=== PATIENT | male | born 1995 | race African-American/Black ===

== ENCOUNTER 2018-09-03 16:41 | Emergency (ER) | payer OTHER ==
[2018-09-03 16:54] VITALS: BP 123/80
--- NOTE | 2018-09-03 17:32 | ED ---
Throat Pain/Nasal Congestion - HPI Summary HPI Summary: 23-year-old male presents with dental pain for the past couple days. He states it is intermittent pain for the past year but couple days ago he broke the tooth further. He states it is sensitive to temperature. No chest pain or shortness breath. No drainage from the area. No sore throat. No difficulty swallowing. Has been using Tylenol for pain relief with minimal relief. - History of Current Complaint Chief Complaint: UCDentalProblem Time Seen by Provider: 09/03/18 17:25 - Allergies/Home Medications Allergies/Adverse Reactions: Allergies Allergy/AdvReac Type Severity Reaction Status Date / Time No Known Allergies Allergy Verified 09/03/18 16:54 Home Medications: Home Medications Acetaminophen [Tylenol] 500 mg PO Q6HR 09/03/18 [History Confirmed 09/03/18] PMH/Surg Hx/FS Hx/Imm Hx Endocrine/Hematology History: Denies: Hx Anticoagulant Therapy Respiratory History: Denies: Hx Asthma Infectious Disease History: No Infectious Disease History: Denies: Traveled Outside the [place] in Last 30 Days - Family History Known Family History: Positive: Non-Contributory - Social History Alcohol Use: None Substance Use Type: Reports: Marijuana Substance Use Comment - Amount & Last Used: daily Smoking Status (MU): Heavy Every Day Tobacco Smoker Review of Systems Negative: Fever Positive: Dental Pain Negative: Chest Pain Negative: Shortness Of Breath All Other Systems Reviewed And Are Negative: Yes Physical Exam Triage Information Reviewed: Yes Vital Signs On Initial Exam: Initial Vitals Temp Pulse Resp BP Pulse Ox 98.5 F 78 14 123/80 98 09/03/18 16:43 09/03/18 16:43 09/03/18 16:43 09/03/18 16:43 09/03/18 16:43 Vital Signs Reviewed: Yes Appearance: Positive: Well-Appearing Skin: Positive: Warm, Dry Head/Face: Positive: Normal Head/Face Inspection Eyes: Positive: Normal, EOMI, JOSE GUADALUPE, Conjunctiva Clear ENT: Positive: Normal ENT inspection, Pharynx normal, TMs normal Dental: Positive: Percussion Tenderness @ - 31, Gross Decay/Caries @ - throughout Respiratory/Lung Sounds: Positive: Clear to Auscultation, Breath Sounds Present Cardiovascular: Positive: Normal, RRR Musculoskeletal: Positive: Normal Neurological: Positive: Normal Psychiatric: Positive: Normal Diagnostics - Vital Signs Vital Signs Temp Pulse Resp BP Pulse Ox 09/03/18 16:43 98.5 F 78 14 123/80 98 - Laboratory Lab Statement: Any lab studies that have been ordered have been reviewed, and results considered in the medical decision making process. EENT Course/Dx - Course Course Of Treatment: 23-year-old male presents with dental pain for the past couple days. He states it is intermittent pain for the past year but couple days ago he broke the tooth further. He states it is sensitive to temperature. No chest pain or shortness breath. No drainage from the area. No sore throat. No difficulty swallowing. Has been using Tylenol for pain relief with minimal relief. On exam has fractured that tooth 31. No evidence of abscess. We'll treat with penicillin and ibuprofen. To follow up with dentist. Patient understands agrees with plan. - Differential Diagnoses Differential Diagnoses: Dental Abscess, Dental Caries, Gingivitis - Diagnoses Provider Diagnoses: Dental infection Discharge - Sign-Out/Discharge Documenting (check all that apply): Patient Departure All imaging exams completed and their final reports reviewed: No Studies - Discharge Plan Condition: Good Disposition: HOME Prescriptions: Ibuprofen TAB* [Motrin TAB* 800 MG] 800 mg PO Q6H #20 tab Penicillin VK TAB* [Penicillin VK 250 mg Tab*] 250 mg PO QID #28 tab Patient Education Materials: Toothache (ED) Referrals: Samy Costello MD [Primary Care Provider] - Additional Instructions: Take antibiotics: 4 times a day for 7 days Use ibuprofen or tyenlol every 6 hours Avoid hard, crunchy food until seen by dentist Follow up with dentist as soon as possible Return to ED if develop fever, shortness of breath, pain with eye movement or swelling around eye - Billing Disposition and Condition Condition: GOOD Disposition: Home Images - Images Dental: 1 - fractured - Attestation Statements Provider Attestation: I did not see or disposition this patient. I was available for consult.
== END 2018-09-03 17:40 | disposition home or self-care (01) ==
LOC: UCEAST 16:41
DX: K04.7 Periapical abscess without sinus (principal); K03.81 Cracked tooth; K02.9 Dental caries, unspecified; F17.200 Nicotine dependence, unspecified, uncomplicated
CPT/HCPCS: 99202; G0463